=== PATIENT | male | born 1960 | race Caucasian/White ===

== ENCOUNTER 2022-05-07 10:26 | Emergency (ER) | payer BC, SELFPAY ==
[2022-05-07 10:48] VITALS: BP 150/87; PULSE 80; RESP 18; TEMP 36.6; O2SAT 97
--- NOTE | 2022-05-07 11:07 | ED.EAR ---
HPI - Ear Problem General Chief complaint: Ear Stated complaint: ear pain Time Seen by Provider: 05/07/22 11:07 History of Present Illness HPI Narrative: Michael Barragan is a 62 yo male with a history of high blood pressure and noncompliance with medication, long-term effects from COVID in 2020, comes for complaints of pain in his ear. Is bilateral ear pain from using a pen top to scratch inside of his ear the right is almost swollen shut the left is reddened he rates the pain bilaterally is 3 out of 10. He has been going on for a number of days at this point Related Data Allergies Allergy/AdvReac Type Severity Reaction Status Date / Time Penicillins Allergy Rash Verified 05/07/22 10:54 Review of Systems Review of Systems: CONSTITUTIONAL: Denies fever, chills, sweats. EYES: Denies visual changes, redness, discharge. ENT: Denies rhinorrhea, congestion, sore throat, bilateral otalgia. Right worse than left CARDIOVASCULAR: Denies chest pain, palpitations, edema. RESPIRATORY: Denies dyspnea, wheezing, cough GASTROINTESTINAL: Denies abdominal pain, nausea, vomiting, diarrhea. GENITOURINARY: Denies dysuria, hematuria, abnormal discharge SKIN: Denies rash or itching. NEUROLOGIC: Denies numbness, or focal weakness. PSYCHIATRIC: Denies anxiety or depression. [facility] Past Medical History Medical History HTN (hypertension) Obesity Social History Social History (Updated 05/07/22 @ 11:11 by Rima Burgess CNP) Smoking status: Never smoker Alcohol intake: current Comments At time of signature, I agree with nursing past medical, surgical, social and family history. There is no relevant family history pertinent to the presenting complaint. Exam Narrative: GENERAL: This is a well-nourished, well-developed patient, in mild distress. HEAD: normocephalic, atraumatic. EYES: Sclera clear/white. Vision is grossly intact. EARS: External ears normal, auditory canals erythema and with drainage on R, TMs not visualized on right. Hearing grossly intact. NOSE: External nose normal without nasal discharge, nares without redness, no rhinorrhea. THROAT: Mucous membranes moist, NECK: Neck supple, non-tender CARDIOVASCULAR: Regular rate and rhythm without murmurs, gallops, or rubs. RESPIRATORY: Clear to auscultation. Breath sounds equal bilaterally. No wheezes, rales, or rhonchi. GASTROINTESTINAL: Not done SKIN: warm, intact with no suspicious lesions or rash, good texture and turgor. NEURO: awake, alert, and oriented to person, place and time. There were no obvious focal neurologic abnormalities. Steady gait EXTREMITIES: Normal range of motion. BACK: Nontender without deformity Course Course Emergency Course: Patient comes with bilateral ear pain the right ear is very swollen Eardrops and antibiotic oral Level of Care: Express Care Visit Vital Signs Vital signs: Vital Signs Temperature 98 F 05/07/22 10:48 Pulse Rate 80 05/07/22 10:48 Respiratory Rate 18 05/07/22 10:48 Blood Pressure 150/87 H 05/07/22 10:48 Pulse Oximetry 97 05/07/22 10:48 Oxygen Delivery Room Air 05/07/22 10:48 Temperature 98 F 05/07/22 10:48 Pulse Rate 78 05/07/22 11:18 Respiratory Rate 18 05/07/22 10:48 Blood Pressure 151/94 H 05/07/22 11:18 Pulse Oximetry 97 05/07/22 10:48 Oxygen Delivery Room Air 05/07/22 10:48 Medical Decision Making Differential Diagnosis Differential Diagnosis: Otitis media , otitis externa versus eustachian tube dysfunction Vital Signs Vital Signs: Vital Signs Temperature 98 F 05/07/22 10:48 Pulse Rate 80 05/07/22 10:48 Respiratory Rate 18 05/07/22 10:48 Blood Pressure 150/87 H 05/07/22 10:48 Pulse Oximetry 97 05/07/22 10:48 Oxygen Delivery Room Air 05/07/22 10:48 Temperature 98 F 05/07/22 10:48 Pulse Rate 78 05/07/22 11:18 Respiratory Rate 18 05/07/22 10:48 Blood Pressure 151/94 H /
[2022-05-07 11:18] VITALS: BP 151/94; PULSE 78
== END 2022-05-07 11:21 | disposition home or self-care (01) ==
PROVIDERS: Emergency Provider Nurse Practitioner
DX: H66.006 Acute suppurative otitis media without spontaneous rupture of ear drum, recurrent, bilateral (principal); I10 Essential (primary) hypertension; Z91.14 Patient's other noncompliance with medication regimen; E66.9 Obesity, unspecified; Z68.41 Body mass index [BMI] 40.0-44.9, adult; Z86.16 Personal history of COVID-19
CPT/HCPCS: 99203; G0463